=== PATIENT | female | born 1985 | race Caucasian/White ===

== ENCOUNTER 2021-12-24 08:55 | Outpatient (CLI) | payer BC, SELFPAY | END 2021-12-24 08:56 | disposition home or self-care (01) | PROVIDERS: Visit Provider Student in an Organized Health Care Education/Training Program | DX: Z01.818 Encounter for other preprocedural examination (principal); Z15.01 Genetic susceptibility to malignant neoplasm of breast | CPT/HCPCS: 36415; 86850; 86900; 86901 ==

== ENCOUNTER 2021-12-26 01:19 | Day surgery (SDC) | payer BC, SELFPAY ==
[2021-12-22 11:40] VITALS: BMI 32.3
--- NOTE | 2021-12-22 11:47 | PC.NURSE ---
Report to the Outpatient Waiting Room, entrance under the green pavilion located off [facility], at time 6:00 on date 12/26/21. Planned Procedure Time: 7:30. Time changes happen often and if your time is changed the preop area will call you the afternoon before. - You and your visitor will be asked to self-screen and do not enter if you have any COVID symptoms. - We encourage only one visitor and NO visitors under age 16 are allowed at this time. Your visitor will receive communication by the phone number that is given day of service. - The patient visitor is requested to social distance or may leave the building when not with patient due to restrictions. - A mask is OPTIONAL within the hospital. Patients may have clear liquids (water, carbonated beverages, clear teas, apple juice) until 3 hours prior to surgery (4:30) with a maximum of 20 ounces. - No food from midnight until time of surgery Take the following medications with a SIP of water the morning of surgery: N/A Medications to discontinue per physician: N/A Date to take last dose: N/A Please no make-up, nail kazakh, hairspray, perfume, deodorant, or body powder the day of surgery. No jewelry (including any body piercings) or valuables the day of surgery, leave them at home. Please take a shower or bath the night before, or the morning of, surgery with an antibacterial soap. Wear comfortable, loose fitting clothing. - Jewelry must be removed prior to entering the operating room. Rings and piercings that are not removed may be cut off. - The hospital will not accept responsibility for valuables. - Please leave all valuables, including medications, at home the day of surgery. If you are going home after surgery, a licensed team truck driver must drive you home. - NO public transportation without another adult. - We recommend that an adult stay with you for 24 hours following discharge. - We also recommend that you do not drive, make important decision, drink alcoholic beverages, or take any drugs that were not prescribed by your health care provider for at least 24 hours after your discharge time. Follow any additional instructions given to you from your surgeon. If you or anyone in your household have experienced Covid symptoms in the past week, please notify your surgeon or the nurse liaison at the phone number below for possible testing. Telephone instructions given to PT - YONY FREEMAN and asked if any additional questions and then verbalized understanding. Patient advised to call surgeon office or pre surgery nurse liaison [phone] if any additional questions.
--- NOTE | 2021-12-25 15:43 | PM.IMHP ---
H&P: HPI History of Present Illness Date/Time: 12/25/21 15:43 Chief Complaint: BRCA 1 positive Desires risk reducing surgery Narrative: Pt is a 36yo woman with a history of BRCA 1 gene mutation. She was diagnosed with breast cancer in 2019 and is s/p bilateral mastectomy with reconstruction. She has completed childbearing and desires risk reducing salpingo-oophorectomy. Discussion had with patient regarding concurrent hysterectomy at time of surgery, which patient strongly desires. In general, patient reports feeling well today without complaints. Review of Systems Review of Systems: All systems reviewed & are unremarkable except as noted in HPI and below Constitutional: Constitutional: Reports as per HPI and Reports no additional constitutional complaints Eyes: Eyes: Reports as per HPI and Reports no additional eye complaints ENT: Reports system reviewed and no additional complaints, except as documented and Reports as per HPI Cardiovascular: Cardiovascular: Reports as per HPI and Reports no additional cardiovascular complaints Respiratory: Respiratory: Reports as per HPI and Reports no additional respiratory complaints Gastrointestinal: Gastrointestinal: Reports as per HPI and Reports no additional gastrointestinal complaints Genitourinary: Genitourinary: Reports no additional female genitourinary complaints and Reports as per HPI Musculoskeletal: Musculoskeletal: Reports no additional musculoskeletal complaints and Reports as per HPI Integumentary/Breasts: Skin/Breast: Reports system reviewed and no additional complaints, except as docu and Reports as per HPI Neurologic: Reports system reviewed and no additional complaints, except as documented and Reports as per HPI Psychiatric: Psychiatric: Reports no additional psychiatric complaints and Reports as per HPI Endocrine: Endocrine: Reports no additional endocrine complaints and Reports as per HPI Hematologic/Lymphatic: Hematologic/Lymphatic: Reports no additional hematologic/lymphatic complaints and Reports as per HPI Allergic/Immunologic: Allergic/Immunologic: Reports no additional allergic/immunologic complaints and Reports as per HPI PMFSH Past Medical History Medical History History of breast cancer History of vaginal delivery x 4 Surgical History Surgical History History of bilateral mastectomy History of cholecystectomy History of reconstruction of both breasts History of repair of hiatal hernia Family History Family History Mother Breast cancer Cervical cancer Depression Thyroid disorder Father Heart disease Daughter Asthma Grandparent Asthma Diabetes mellitus Sibling Asthma Depression Social History Social History Smoking status: Never smoker Alcohol intake: never Substance use: never Substance use type: does not use Spiritual care concerns: No Meds Home Medications and Allergies Home Medications Medication Instructions Recorded Confirmed Type No Home Medications 11/26/21 12/22/21 History Allergies Allergy/AdvReac Type Severity Reaction Status Date / Time No Known Allergies Allergy Verified 12/22/21 11:40 Exam Const: General: cooperative, healthy appearing, comfortable and no acute distress HENMT: Head: normal to inspection Ears: hearing grossly normal bilaterally Eyes: General: appearance normal, both eyes and all related structures Neck: Neck: normal visual inspection Resp: Effort & Inspection: normal respiratory effort Auscultation: clear to auscultation bilaterally Cardio: Rate: regular rate Rhythm: regular rhythm GI: Inspection: normal to inspection and non-distended GI Palp: Yes Soft to palpation and No Tenderness to palpation present (GI) : Other: deferr
[2021-12-26] VITALS (13 sets, daily range): BP systolic 103–132; BP diastolic 59–85; PULSE 79–106; RESP 16–20; TEMP 36.7–37.2; O2SAT 95–100
[2021-12-26] MEDS: ACETAMINOPHEN 500 MG TABLET 1000 MG PO (06:41)
[2021-12-26] MEDS: KETOROLAC 15 MG/ML VIAL (*BKC) IV PUSH (06:43)
--- NOTE | 2021-12-26 06:44 | WPDANESEPPF ---
Anes - Initial Pre Proc Eval Procedure: Operation Date: 12/26/21 07:30 Proposed Procedures p Laparoscopic Assisted Vaginal Hysterectomy, Bilateral Salpingo-Oophorectomy - Trisha Rosario MD Date/Time: 12/26/21 06:44 Surgeon: Trisha Rosario MD Pre Op Diagnosis: barc 1 positive status Patient Data Age: 36 Gender: F Height: 1.68 m Weight: 90.72 kg Allergies Allergy/AdvReac Type Severity Reaction Status Date / Time No Known Allergies Allergy Verified 12/22/21 11:40 Home Medications Medication Instructions Recorded Confirmed Type No Home Medications 11/26/21 12/22/21 History Patient hx anesthesia problems: none Family hx anesthesia problems: none Results Review: All pre-operative results and documents have been reviewed as part of the pre-operative evaluation. [facility] Past Medical History Medical History History of breast cancer History of vaginal delivery x 4 Surgical History Surgical History History of bilateral mastectomy History of cholecystectomy History of reconstruction of both breasts History of repair of hiatal hernia Family History Family History Mother Breast cancer Cervical cancer Depression Thyroid disorder Father Heart disease Daughter Asthma Grandparent Asthma Diabetes mellitus Sibling Asthma Depression Social History Social History Smoking status: Never smoker Alcohol intake: never Substance use: never Substance use type: does not use Living arrangements: with family Spiritual care concerns: No Anes - Eval Final PreProcedure Day of Procedure 12/26/21 06:44 Patient weight: obese Heart: regular rate and rhythm Lungs: clear to auscultation Airway: Mallampati scale class II Neurological: alert and oriented Last oral intake: >/= 8 hours ASA classification: III Emergent: no Anesthetic plan: proceed Anesthesia type and monitoring: general ETT and standard monitoring Results Review: All pre-operative results and documents have been reviewed as part of the pre-operative evaluation. Informed Consent: The patient's anesthetic plan and its attendant risks and benefits were discussed with the patient/family/POA. Questions were solicited and answers provided to the satisfaction of the patient/family/POA.
[2021-12-26] MEDS: LACTATED RINGERS 1,000 ML 30 ML IV CONT ×2 (06:45→11:10)
[2021-12-26] MEDS: SCOPOLAMINE 1.5 MG PATCH TRANSDERM (07:00)
--- NOTE | 2021-12-26 07:23 | WPDHPUPDATE1 ---
History and Physical Update Update Date/Time: 12/26/21 07:23 History and Physical has been reviewed, including an updated exam of the patient. There are NO changes in the patient's condition. Risks, benefits, and alternatives have been discussed and questions answered. Patient agrees to proceed with procedure.
[2021-12-26] MEDS: ceFAZolin 2 GM/D5W 50 ML 2 GM/50 ML BAG IVPB (07:28)
[2021-12-26] MEDS: BUPIVACAINE HCL 0.25% PF 30 ML VIAL INFILTRATE (08:19)
--- NOTE | 2021-12-26 11:16 | W.PM.PROC2 ---
Procedure Note - Detailed Date of Procedure 12/26/21 Pre-op Diagnosis BRCA 1 positive status Desires risk reducing salpingo-oophorectomy with concurrent hysterectomy Post-op Diagnosis Same Procedure Performed Laparoscopic assisted vaginal hysterectomy Bilateral salpingo-oophorectomy Surgeon Trisha Rosario MD Chassis Wirer Tamiko Jama Anesthesia General Findings normal appearing uterus, ovaries, and fallopian tubes bilaterally Description of Procedure The patient was taken to the operating room, where she self-transferred to the operating room table. She was placed in dorsal supine position. General anesthesia was administered without difficulty and found to be adequate.? The patient was repositioned in dorsal lithotomy position with the use of Benito stirrups and arms were carefully tucked at her side.? She was prepped and draped in usual sterile fashion.? A Hallman catheter was inserted using sterile technique.? A bivalve speculum was then placed into the vagina.? With good visualization of the cervix, the anterior lip of the cervix was grasped with a single-tooth tenaculum. The cervix was then serially dilated to accommodate the insertion of a HUMI uterine manipulator, which was inserted into the uterus for use during the laparoscopic portion of the case.? The tenaculum and speculum were removed.? Supervisor [employer]'s gloves were changed.? Attention was then turned to the patient's abdomen.? A small amount of 0.25% Marcaine was injected in the infraumbilical region.? A small infraumbilical incision was made with a scalpel.? While tenting the abdominal wall up, a Veress needle was inserted into the abdominal cavity.? Intra-abdominal confirmation was made with saline.? Carbon dioxide tubing was connected to the Veress needle and insufflation was begun.? The abdomen was insufflated to 15 mmHg.? Once adequate pneumoperitoneum was achieved, the Veress needle was removed and a 5 mm Optiview trocar was then inserted into the abdominal cavity under direct visualization with the laparoscope.? The trocar was removed.? The laparoscope was reintroduced into the abdominal cavity through the sheath.? For enhanced visualization and completion of the procedure, two additional lateral trocars were placed, one in the left lower quadrant and one in the right lower quadrant. A small amount of 0.25% Marcaine was injected in the right lower quadrant. A skin incision was made with a scalpel and a 5 mm trocar was placed under direct visualization.? Similarly, a small amount of 0.25% Marcaine was injected and a skin incision was made in the left lower quadrant. An additional 5 mm trocar was placed under direct visualization.? The patient was placed in Trendelenburg position.? This allowed good visualization of pelvic structures and a quick survey of the pelvic cavity was completed.? The uterus, ovaries, and fallopian tubes appeared to be normal. No gross abnormalities of the visualized portions of the intestines were noted.? The anterior and posterior cul-de-sacs also appeared clean without evidence of significant scarring or adhesions. The ureters were visualized bilaterally. With the use of LigaSure bipolar cautery and transection device, the right round ligament was identified, grasped, cauterized, and transected. Dissection of the anterior leaf of the broad ligament was performed toward the midline from this side, beginning the creation of the bladder flap. The infundibulopelvic ligament on the right side was identified. The ureter was visualized again along the pelvic sidewall. The LigaSure device was then used to cauterize and transect the infundibulopelvic ligament. Sequential bites were taken along the posterior aspect of the broad ligament beneath the fallopian tube. The remainder of the posterior leaf of the broad ligament and cardinal ligaments on right side were also dissected with the LigaSure until the uterine artery was identified. Attention was then turned to the left side. In a similar ma
--- NOTE | 2021-12-26 12:04 | SUR.PHASEI ---
1159: Simple mask removed.
[2021-12-26] MEDS: ONDANSETRON INJ 4 MG/2 ML VIAL IV PUSH (12:08)
--- NOTE | 2021-12-26 12:51 | PC.NURSE ---
This patient, Chacha Murillo, was received from PACU on 12/26/21 at 1251. Patient/family oriented to unit policies and routines
[2021-12-26] MEDS: DEXTROSE 5%/LACTATED RINGERS 1,000 ML 125 ML IV CONT (13:26)
[2021-12-26] MEDS: KETOROLAC 30 MG/ML VIAL (*BKC) IV PUSH (13:28)
[2021-12-26] MEDS: SIMETHICONE 80 MG TAB.CHEW PO ×2 (13:31→17:23)
[2021-12-26] MEDS: HYDROcodone/acetaminophen (*CRX) 5-325 MG TABLET 1 TAB PO ×2 (17:23→21:15)
[2021-12-26] MEDS: DOCUSATE SODIUM 100 MG CAPSULE PO (17:23)
[2021-12-26] MEDS: IBUPROFEN 600 MG TABLET PO (21:15)
[2021-12-27] MEDS: HYDROcodone/acetaminophen (*CRX) 5-325 MG TABLET 1 TAB PO ×4 (00:15→10:45)
[2021-12-27] MEDS: SIMETHICONE 80 MG TAB.CHEW PO ×4 (00:16→10:43)
[2021-12-27] MEDS: IBUPROFEN 600 MG TABLET PO ×2 (04:04→10:44)
[2021-12-27 04:16] VITALS: BP 113/54; PULSE 78; RESP 18; TEMP 36.2; O2SAT 96
--- NOTE | 2021-12-27 04:27 | PC.NURSE ---
0415 -- vag packing removed w/o diff., sc. amt. br. red blood on packing
[2021-12-27] MEDS: DOCUSATE SODIUM 100 MG CAPSULE PO (07:13)
[2021-12-27 07:21] VITALS: BP 115/62; PULSE 73; RESP 18; TEMP 36.5; O2SAT 97
--- NOTE | 2021-12-27 11:08 | PM.GYNPNOP ---
WILDLIFE FORENSIC GENETICIST - A/P Assessment and plan (1) S/P laparoscopic assisted vaginal hysterectomy (LAVH): Code(s): Z90.710 - Acquired absence of both cervix and uterus Status: Acute Assessment and Plan: POD#1 doing well continue routine postoperative care encourage ambulation and use of IS anticipate dc home today once passing flatus emergency precautions reviewed f/u in office in 2 weeks Postoperative Procedures: Procedures Operation Date: 12/26/21 07:30 Actual Procedure Side Surgeon p Laparoscopic Assisted Vaginal Hysterectomy, Bilateral Salpingo-Oophorectomy Bilateral Trisha Rosario MD Time Spent With Patient Time: Total time spent is greater than 50% in coordination of care (as documented) at patient's floor/unit and/or counseling patient: Time with patient: less than 15 minutes WILDLIFE FORENSIC GENETICIST- PN:Subj Post-Op Subjective Date/time seen: 12/27/21 11:08 Patient doing well this AM. Pain reasonably controlled with medication. Denies any headache, chest pain, SOB, N/V. Tolerating PO diet. Hallman catheter and vaginal packing removed this AM. Denies any vaginal bleeding. Ambulating without difficulty. Voiding well. No flatus yet. Review of Systems Review of Systems: All systems reviewed & are unremarkable except as noted in HPI and below Constitutional: Constitutional: Reports as per HPI and Reports no additional constitutional complaints Exam Const: General: cooperative, healthy appearing, comfortable and no acute distress GI: Inspection: non-distended GI Palp: Yes Soft to palpation and No Tenderness to palpation present (GI) Other: inc sites c/d/i Extrem: Right lower extremity: no edema Left lower extremity: no edema Other: no calf tenderness WILDLIFE FORENSIC GENETICIST - PN: Obj Data Vital Signs Vital Signs: Vital Signs - 24 hr 12/26/21 11:10 12/26/21 11:25 12/26/21 11:35 Temperature 36.8 C Pulse Rate 98 100 106 H Respiratory Rate 20 18 20 Blood Pressure 118/72 119/79 126/79 Pulse Oximetry 100 100 100 Oxygen Delivery Simple Face Mask Simple Face Mask Simple Face Mask Oxygen Flow Rate 8 8 8 12/26/21 11:40 12/26/21 11:55 12/26/21 12:10 Temperature Pulse Rate 103 H 106 H 100 Respiratory Rate 18 18 19 Blood Pressure 127/76 132/75 130/77 Pulse Oximetry 100 100 95 Oxygen Delivery Simple Face Mask Simple Face Mask Room Air Oxygen Flow Rate 8 8 12/26/21 12:25 12/26/21 12:40 12/26/21 13:15 Temperature 36.7 C Pulse Rate 96 103 H 95 Respiratory Rate 18 18 16 Blood Pressure 123/73 126/72 125/70 Pulse Oximetry 95 95 96 Oxygen Delivery Room Air Room Air Oxygen Flow Rate 12/26/21 16:00 12/26/21 20:00 12/26/21 22:57 Temperature 37.0 C 37.2 C 36.7 C Pulse Rate 82 85 79 Respiratory Rate 18 18 18 Blood Pressure 103/65 110/85 114/59 L Pulse Oximetry 100 100 96 Oxygen Delivery Oxygen Flow Rate 12/26/21 22:57 12/27/21 04:16 12/27/21 04:16 Temperature 36.2 C L Pulse Rate 79 78 78 Respiratory Rate 18 18 18 Blood Pressure 113/54 L Pulse Oximetry 96 96 96 Oxygen Delivery Room Air Room Air Oxygen Flow Rate 12/27/21 07:21 Temperature 36.5 C Pulse Rate 73 Respiratory Rate 18 Blood Pressure 115/62 Pulse Oximetry 97 Oxygen Delivery Oxygen Flow Rate Intake/Output Intake/Output: Intake & Output 12/24/21 12/25/21 12/26/21 12/27/21 23:59 23:59 23:59 23:59 Intake Total 2230 700 Output Total 1250 440 Balance 980 260 Meds/Results Medications: Active Medications Generic Name Dose Route Start Last Admin Trade Name Freq PRN Reason Stop Dose Admin Hydrocodone Bitart/Acetaminophen 1 tab 12/26/21 12:41 12/27/21 10:45 Hydrocodone/Acetaminophen (*Crx) 5-325 Mg Tablet PO 1 tab Q3H PRN Administration Pain Rated 5 or Less Hydrocodone Bitart/Acetaminophen 1 tab 12/26/21 12:41 Hydrocodone/Acetaminophen (*Crx) 10-325 Mg Tablet PO Q3H PRN Pain Rated 6 or Greater Docusate Sodium 100 mg 12/26/21 17:00 12/27/21 07:13 Docusate Sodium 10
--- NOTE | 2021-12-27 11:11 | PM.DS ---
DS: Admitting Diagnosis Discharge Date 12/27/21 Admitting Diagnosis BRCA 1 positive Desires risk reducing surgery DS: Discharge Diagnosis Discharge Diagnosis (1) S/P laparoscopic assisted vaginal hysterectomy (LAVH): Code(s): Z90.710 - Acquired absence of both cervix and uterus Status: Acute DS: Summary Hospital Course Hospital Course: Uncomplicated Time Spent with Patient Time attestation: Total time spent providing and/or coordinating discharge services: DS: Data Data Completed and Pending Pending studies at discharge: Pending at discharge 12/26/21 10:03 Surgical [PTH] Routine Discharge Plan Discharge Attending physician on discharge: Trisha Rosario Discharging Clinician: Trisha Rosario Anticipated Discharge Date/Time: 12/27/21 12:00 Patient Disposition: Home, Self-Care Activity: may drive after 2 weeks and pelvic rest Diet: regular Discharge Instructions: Call office ([phone]) to schedule the following appointments: 1. Postoperative/wound check in 2 weeks. You may take Ibuprofen 600mg every 6 hours as needed for pain. I have sent a prescription for a stronger pain medication, Gustine, to your pharmacy. You may take this as prescribed for breakthrough pain (pain that is not controlled with Ibuprofen). No driving for at least two weeks. You also may not drive while taking narcotics. Pain medication may make you constipated. It may be helpful to take an uuno-gos-blouhbi stool softener, such as Colace and/or Senokot, along with the pain medication to help lessen constipation. Call office or go to ED for pain not controlled with medication, headache, chest pain, shortness of breath, fever, chills, persistent nausea or vomiting, severe abdominal pain, heavy vaginal bleeding, foul vaginal discharge or odor, any redness near incisions, severe pain, pus or drainage from incision sites. Patient Instructions: Antibiotic Form Stand Alone Forms: General Discharge Information Follow-up/Referrals: Trisha Rosario MD [Physician] - Discharge Medications: New hydrocodone-acetaminophen 5-325 mg Tablet 1 - 2 tablet PO Q4-6H PRN (Reason: Pain Rated 5 Or Less) Qty: 20 0RF Continued No Home Medications Date of admission: 12/26/21 12:41 Primary Care Provider: PHYSICIAN,ROAD MACHINE OPERATOR Admitting Provider: Trisha Rosario Attending physician on admission: Trisha Rosario Condition: Stable
== END 2021-12-27 13:10 | disposition home or self-care (01) ==
LOC: ANHSURGERY 06:12 → ANHOB2 12-27 11:14 → ANHLDR 12-30 05:51
PROVIDERS: Visit Provider Student in an Organized Health Care Education/Training Program
PROC: 0UT9FZZ Resection of Uterus, Via Natural or Artificial Opening With Percutaneous Endoscopic Assistance (ICD-10-PCS; CPT 58552; principal; 2021-12-26 07:30)
DX: Z40.02 Encounter for prophylactic removal of ovary(s) (principal); Z15.02 Genetic susceptibility to malignant neoplasm of ovary; Z85.3 Personal history of malignant neoplasm of breast; Z90.13 Acquired absence of bilateral breasts and nipples; Z15.01 Genetic susceptibility to malignant neoplasm of breast; E66.9 Obesity, unspecified; Z68.32 Body mass index [BMI] 32.0-32.9, adult
CPT/HCPCS: 58552; 88307; 99199; A9270; J0131; J0330; J0690; J1100; J1170; J1885; J2250; J2405; J2704; J3010; J7030; J7120; J7121